=== PATIENT | female | born 1985 | race Caucasian/White ===

== ENCOUNTER 2017-03-10 23:25 | Emergency (ER) | payer MEDICAID ==
[~2017-03-10] VITALS: Ht 160 cm; Wt 89.6 kg
[2017-03-11] MEDS ORDERED: LIDOCAINE 1%, 20ML ONE (00:54)
[2017-03-11] MEDS ORDERED: LIDOCAINE 1%, 10ML INFIL ONE (01:00)
[2017-03-11 01:30] VITALS: BP 136/86
[2017-03-11] MEDS ORDERED: DIPH,PERTUSS(ACELL),TET VAC/PF 0.5 ML IM-VACC ONE ×2 (01:41→02:00)
== END 2017-03-11 02:07 | disposition home or self-care (01) ==
LOC: ED 23:59
DX: L02.416 Cutaneous abscess of left lower limb (principal); F15.10 Other stimulant abuse, uncomplicated; I10 Essential (primary) hypertension; F17.200 Nicotine dependence, unspecified, uncomplicated
CPT/HCPCS: 10060; 90471; 90715

== ENCOUNTER 2018-08-31 20:44 | Emergency (ER) | payer MEDICAID ==
[~2018-08-31] VITALS: Ht 160 cm; Wt 89.4 kg
[2018-08-31 20:49] VITALS: BP 132/89
== END 2018-08-31 21:37 | disposition home or self-care (01) ==
LOC: ED 21:36
DX: L72.3 Sebaceous cyst (principal); I10 Essential (primary) hypertension
CPT/HCPCS: 99281